=== PATIENT | female | born 1995 | race Caucasian/White ===

== ENCOUNTER 2017-05-25 21:38 | Emergency (ER) | payer OTHER ==
[~2017-05-25] VITALS: Ht 162.6 cm; Wt 53.5 kg
[~2017-05-25 21:38] MED LIST: NEXPLANON68 MG SUBQ; OXAZEPAM PO; ZOLOFT25 MG PO; ZYPREXA 5 MG TAB5 M1 PO
[2017-05-25 21:40] VITALS: BP 120/75
[2017-05-25 22:12] LABS: HEMATOCRIT 42.2 % (37.0-47.0); HEMOGLOBIN 14.4 gm/dL (12.0-15.0); MCH 29.5 pg (26.0-34.0); MCHC 34.1 g/dL (28.0-37.0); MCV 86.7 fL (80.0-100.0); PLATELET COUNT 309 thou/uL (150-400); RBC 4.87 mil/uL (4.20-5.00); RDW 14.2 % (10.5-14.5)
[2017-05-25 22:20] LABS: ANION GAP 9 mmol/L (7-16); BUN 6 mg/dL (7-18); CALCIUM 8.8 mg/dL (8.5-10.1); CHLORIDE 108 mmol/L (98-107); CO2 24 mmol/L (21-32); CREATININE 0.6 mg/dL (0.6-1.0); GLUCOSE 110 mg/dL (74-106); POTASSIUM 4.3 mmol/L (3.5-5.1); SODIUM 141 mmol/L (136-145)
[2017-05-25 22:26] LABS: ALBUMIN 3.6 g/dL (3.4-5.0); DIRECT BILIRUBIN < 0.1 mg/dL (<0.1-0.3); LIPASE 132 U/L (73-393); SGOT 22 U/L (15-37); SGPT 35 U/L (30-65); TOTAL BILIRUBIN 0.2 mg/dL (<0.1-1.0); TOTAL PROTEIN 6.6 g/dL (6.4-8.2)
[2017-05-25] MEDS ORDERED: NORCO 5-325 TA1 EACH PO (22:34)
[2017-05-25 23:01] LABS: ABSOLUTE NEUTROPHILS 5.5 thou/uL (1.4-8.2); ATYPICAL LYMPHS 7 %
== END 2017-05-25 22:50 | disposition home or self-care (01) ==
LOC: ER 21:38
PROVIDERS: Emergency Medicine
DX: K82.8 Other specified diseases of gallbladder (principal); K21.9 Gastro-esophageal reflux disease without esophagitis; F32.9 Major depressive disorder, single episode, unspecified; F41.9 Anxiety disorder, unspecified; Z88.8 Allergy status to other drugs, medicaments and biological substances; Z88.5 Allergy status to narcotic agent

== ENCOUNTER 2017-05-31 05:55 | Observation (INO) | payer OTHER ==
[~2017-05-31] VITALS: Ht 162.6 cm; Wt 59.4 kg
[2017-05-31] VITALS (8 sets, daily range): BP systolic 99–120; BP diastolic 51–70
--- NOTE | ~2017-05-31 | S ---
[facility] [address] [place] [address] SURGICAL PATH RPT PROCEDURE Name: JOSEFA BOLDEN Room #: 402-P [facility] Ceci Cowan#: [id number] Admission: 05/31/17 Date of : 89 Discharge: Report #: [id number] Path Case #: [id number] PATHOLOGY REPORT COLLECTION DATE: 05/31/2017 RECEIVED DATE: 05/31/2017 SUBMITTING PHYS: Dr. David Mac OTHER PHYS: SPECIMEN(S) RECEIVED: A.Gallbladder * * * * * * * * * * * * FINAL DIAGNOSIS: Gallbladder, cholecystectomy: - Mild chronic cholecystitis. (IUV:uday; 06/01/2017) PATHOLOGIST: Thu Bales M.D. REPORT ELECTRONICALLY SIGNED BY: Thu Bales M.D. DATE/TIME: 06/01/2017 13:09 * * * * * * * * * * * * GROSS PATHOLOGY: Received in formalin labeled "Josefa Bolden gallbladder," is a 6.0 x 2.0 x 0.5 cm, previously opened gallbladder with pink-javed and smooth serosal surfaces. Opening the gallbladder reveals pink-yellow mucosa and an average wall thickness of 0.2 cm. Calculi are not present and no masses are noted grossly. Buffer Nickel sections from the body and fundus are submitted along with the proximal margin in cassette A1. [place] [place] CLINICAL HISTORY: Acalculus cholecystitis. INITIAL CPT CODE(S): A; 12248 Professional services performed by [facility] at [facility] [address], [place] [address] Technical services performed by [facility] at [address] [place] [id number]. [facility] [address] [place] [address] SURGICAL PATH RPT PROCEDURE Name: JOSEFA BOLDEN Room #: 402-P ADM Ceci CastanedaR.#: [id number] Admission: 05/31/17 Date of : [birth year] Discharge: Report #: [id number] Path Case #: [id number] [address] PHONE: [phone] DIRECTOR: Shane Camarena M.D. * * * END OF REPORT * * *
--- NOTE | ~2017-05-31 | O ---
[facility] [place] [address] OPERATIVE REPORT Name: JOSEFA BOLDEN Room #: 402-[place] [facility] [place] Cowan#: [id number] Admission: 05/31/17 Attend Phys: David Mac MD Discharge: 06/01/17 Date of : 89 Report #: [id number] THIS REPORT FOR: //name// CC: FAM unknown Santana Mac DATE OF SERVICE: 05/31/2017 PREOPERATIVE DIAGNOSIS: Acalculous cholecystitis. POSTOPERATIVE DIAGNOSIS: Acalculous cholecystitis. PROCEDURES PERFORMED: Laparoscopic cholecystectomy with cholangiogram. SURGEON: David Mac MD ANESTHESIA: General anesthesia. COMPLICATIONS: None. ESTIMATED BLOOD LOSS: 5 mL. PATIENT FINDINGS: The gallbladder did have quite a bit of adhesion. Cholesterolosis also identified. PATIENT PROCEDURE NOTE: With the patient under general anesthesia, IV antibiotic was administered. The abdomen was prepped and draped in a sterile fashion. Timeout was performed. A 0.25% Marcaine was used to anesthetize the skin. An incision was made in the umbilicus about 2 cm. Fascia was identified. Fascia was then grasped under visualization. Fascia was grasped and then fascia was then opened under visualization; 0 Vicryl suture placed on the fascia for retraction. Veress needle was then placed through the peritoneum. Abdominal cavity was insufflated with CO2. After creating pneumoperitoneum pressure of 15, an 11 mm trocar was placed through the rest of the fascia and the peritoneum under visualization. No harm to underlying tissue. Two 5 mm trocars were placed in the right upper quadrant and a 5 mm trocar placed in the right epigastrium. Gallbladder was identified and lifted over the liver. There was quite a bit of adhesion to the ventral surface of the gallbladder consistent with chronic inflammation. Adhesions were taken down. The cystic duct ____ area of the triangle of Calot was then dissected free. The peritoneum was divided. The cystic artery was found overlying the cystic duct. The artery was isolated, clipped x 2 proximally and 1 distally and then divided. Cystic duct was then isolated without difficulty. Cystic duct gallbladder junction was visualized. Common bile duct is somewhat visible underneath the peritoneum medially. Opening was made in the cystic duct. Cholangiogram catheter was [facility] [address] [place] [address] OPERATIVE REPORT Name: JOSEFA BOLDEN Room #: [facility] Ceci Cowan#: [id number] Admission: 05/31/17 Attend Phys: David Mac MD Discharge: 06/01/17 Date of : 89 Report #: [id number] placed. Fluoroscopic cholangiogram was obtained. Common bile duct filled out well. I did not see any filling defect. The cholangiogram catheter was identified in the cystic duct. No harm to the common duct. The catheter was then removed. The proximal cystic duct was then clipped x 2 and then divided. There was a small strand of tissue, which could be a small posterior artery or a nerve. This was clipped and then divided. The gallbladder was freed from the liver bed. Towards the upper part of the liver bed, there was another vessel. There was a vessel that seemed to go into the liver. This was clipped also and then divided. Gallbladder was freed from the liver bed and removed through the infraumbilical port. Gallbladder was opened off the field. There appears to be sludge in the gallbladder and then also cholesterolosis. The liver bed was checked, hemostasis obtained. Irrigation was aspirated out. Trocars removed. CO2 was evacuated. The fascia defect was closed with [id number] 0 Vicryl x 2. Skin was irrigated. Skin was closed with 5-0 PDS in subcuticular fashion. Steri-Strip and Band-Aids applied. The patient was then taken to recovery room. <ELECTRONICALLY SIGNED> By: David Mac MD 06/22/17 [id number] David Mac MD /nt
[~2017-05-31 05:55] MED LIST changes: +NORCO 5-325 TA1 EACH PO
[2017-05-31 08:12] LABS: HEMATOCRIT 42.3 % (37.0-47.0); HEMOGLOBIN 14.3 gm/dL (12.0-15.0)
[2017-06-01 04:00] VITALS: BP 102/41
[2017-06-01 07:13] VITALS: BP 107/42
[2017-06-01] MEDS ORDERED: PERCOCET PO (15:07)
[2017-06-01 15:43] VITALS: BP 107/42
== END 2017-06-01 16:15 | disposition home or self-care (01) ==
LOC: TBA 05:55 → OR 05:55 → 4N 11:38 → OR 11:38 → ENTRNSPT 06-01 16:08 → 4N 06-01 16:15
PROVIDERS: Surgery
DX: K81.9 Cholecystitis, unspecified (principal)
CPT/HCPCS: 50010; 50101; 50411; 50555; 50558; 51489; 53307; 53310; 54118; 55245; 55317; 56462; 56525; 56526; 62110; 62900